=== PATIENT | female | born 1995 ===

== ENCOUNTER 2020-08-19 16:07 | Outpatient (CLI) | payer OTHER ==
[2020-08-19 16:52] VITALS: BP 117/66
[2020-08-19] MEDS ORDERED: LACTATED RINGERS 1,000 ML IV SCH ×2 (17:00→19:00)
[2020-08-19 18:40] LABS: Bilirubin,Urine NEG (Negative); Blood,Urine NEG (Negative); Color,Urine Colorless (Yellow); Protein,Urine <15 mg/dL mg/dL (Negative); RBC,Urine < 1.0 /HPF (0.0-6.0); Urobilinogen,Urine < 2.0 mg/dL (<2.0)
[2020-08-19] MEDS ORDERED: TERBUTALINE 1 MG/1 ML INJ SUB-Q SCH (19:00)
== END 2020-08-19 20:28 | disposition home or self-care (01) ==
LOC: TRG 16:07 → APU 16:10 → TRG 20:28
PROVIDERS: ATTEND Obstetrics & Gynecology
DX: O47.03 False labor before 37 completed weeks of gestation, third trimester (principal); Z3A.29 29 weeks gestation of pregnancy
CPT/HCPCS: 36415; 59025; 81001; 82731; 96360; 96361; 96372; J3105; J7120

== ENCOUNTER 2020-10-19 03:38 | Inpatient (IN) | payer OTHER ==
[2020-10-19] MEDS ORDERED: fentaNYL 100 MCG/2 ML INJ IV PRN (06:17)
[2020-10-19] MEDS ORDERED: MINERAL OIL 30 ML ORAL LIQD PO PRN (06:17)
[2020-10-19] MEDS ORDERED: TERBUTALINE 1 MG/1 ML INJ SUB-Q PRN (06:17)
[2020-10-19] MEDS ORDERED: LIDOCAINE (2%) 20 MG/1 ML VIAL 20 ML MDV INFILTRATI ONE ×2 (06:17→22:30)
[2020-10-19] MEDS ORDERED: LACTATED RINGERS 1,000 ML IV SCH (06:30)
[2020-10-19] MEDS ORDERED: OXYTOCIN DRIP 30 UNITS/500 ML BAG IV SCH ×2 (07:00)
[2020-10-19 07:53] LABS: Hematocrit 34.2 % (30.3-42.9); Hemoglobin 11.5 gm/dl (10.1-14.3); Mean Corpuscular HGB Conc 34 % (30-34); Mean Corpuscular Volume 85 fl (79-97); Platelet Count 257 K/mm3 (140-440); Red Blood Count 4.03 M/mm3 (3.65-5.03); Red Cell Distribution Width 12.9 % (13.2-15.2)
--- NOTE | 2020-10-19 09:25 | History and Physical Report ---
History of Present Illness Date of examination: 10/19/20 Date of admission: 10/19/20 06:18 Chief complaint: Contractions History of present illness: 25 year old presents to L&D with complaint of contractions. Patient denies LOF or VB. Patient received care at [facility]. records are available. LMP 01/20/2020. EDC 10/26/2020. significant for the following: + FFN and contractions earlier in . labs are as follows: B+, antibody screen negative, rubella immune, hepatitis B surface antigen negative, HIV negative, RPR nonreactive, gonorrhea negative, chlamydia negative, AFP negative, GBS negative, 1 hour sugar test 58. 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 denies: smoking, alcohol abuse, prescription drug abuse, IV drug use - Obstetrical History Expected Date of Delivery: 10/26/20 Actual Gestation: 39 Week(s) 0 Day(s) : 3 Para: 1 Hx # Term Pregnancies: 1 Number of Pregnancies: 0 Spontaneous Abortions: 1 Induced : 0 Number of Living Children: 1 Medications and Allergies Allergies Allergy/AdvReac Type Severity Reaction Status Date / Time No Known Allergies Allergy Verified 08/19/20 16:53 Active Meds: Active Medications Ephedrine Sulfate (Ephedrine Sulfate 50 Mg/1 Ml Inj) 10 mg IV Q2M PRN PRN Reason: Hypotension Fentanyl (Fentanyl 100 Mcg/2 Ml Inj) 100 mcg IV Q2H PRN PRN Reason: Pain,Severe (7-10) LABOR PAIN Oxytocin/Sodium Chloride (Pitocin/Ns 30 Unit/500ml) 30 units in 500 mls @ 2 mls/hr IV TITR TERRIE; Protocol Lactated Ringer's (Lactated Ringers) 1,000 mls @ 125 mls/hr IV DIRECT TERRIE Last Admin: 10/19/20 08:24 Dose: 125 mls/hr Documented by: Oxytocin/Sodium Chloride (Pitocin/Ns 30 Unit/500ml) 30 units in 500 mls @ 40 mls/hr IV TITR TERRIE; Protocol Mineral Oil (Mineral Oil 30 Ml Oral Liqd) 30 ml PO QHS PRN PRN Reason: Constipation Terbutaline Sulfate (Terbutaline 1 Mg/1 Ml Inj) 0.25 mg SUB-Q ONCE PRN PRN Reason: Hyperstimulation/Hypertonicity Review of Systems All systems: negative (contractions) - Vital Signs Vital signs: Vital Signs Temp Pulse Resp BP 99.3 F 88 16 113/69 10/19/20 04:09 10/19/20 04:09 10/19/20 04:09 10/19/20 04:09 Temp Pulse Resp BP Pulse Ox 97.5 F L 80 18 101/56 10/19/20 07:05 10/19/20 07:05 10/19/20 07:05 10/19/20 07:05 - Physical Exam Abdomen: Positive: normal appearance, soft. Negative: distention, tenderness, guarding, rigidity Genitourinary (Female): Positive: normal external genitalia, normal perenium. Negative: perineal/vulvar lesions (no lesions noted on careful exam with bright light) Vagina: Positive: normal moisture Uterus: Positive: enlarged. Negative: tender Anus/Rectum: Positive: normal perianal skin Extremities: Positive: normal. Negative: tenderness, edema - Obstetrical FHR: category 2 Uterine Contraction Monitor Mode: External Cervical Dilatation: 3 Cervical Effacement Percentage: 70 station: -3 Uterine Contraction Pattern: Regular Uterine Contraction Intensity: Mild Results Result Diagrams: 10/19/20 06:18 Abnormal lab results 10/19/20 Range/Units 06:18 RDW 12.9 L (13.2-15.2) % All other labs normal. Assessment and Plan A: at 39 weeks gestation. Labor. GBS negative. Category 2 FHR tracing. P: Admit. Continuous EFM. Lateral positioning. Anticipate vaginal .
[2020-10-19] MEDS ORDERED: ONDANSETRON 4 MG/2 ML INJ IV PRN (12:13)
[2020-10-19] MEDS ORDERED: NALOXONE 2 MG/2 ML INJ IV PRN (12:13)
[2020-10-19] MEDS ORDERED: diphenhydrAMINE 50 MG/ML VIAL IV PRN (12:13)
[2020-10-19] MEDS ORDERED: NalbUPHINE 10 MG/1 ML INJ IV PRN (12:13)
--- NOTE | 2020-10-19 12:49 | Anesthesia Consultation ---
Anesthesia Consult and Med Hx Date of service: 10/19/20 - Airway Anesthetic Teeth Evaluation: Good ROM Head & Neck: Adequate Mental/Hyoid Distance: Adequate Mallampati Class: Class I Intubation Access Assessment: Good - Pulmonary Exam CTA: Yes - Cardiac Exam Cardiac Exam: RRR - Pre-Operative Health Status ASA Pre-Surgery Classification: ASA2 Proposed Anesthetic Plan: Epidural - Pulmonary Hx Smoking: No Hx Asthma: No COPD: No Hx Pneumonia: No Hx Sleep Apnea: No - Cardiovascular System Hx Hypertension: No Hx Heart Attack/AMI: No Hx Angina: No - Central Nervous System Hx Seizures: No Hx Psychiatric Problems: No - Gastrointestinal Hx Gastroesophageal Reflux Disease: No - Endocrine Hx Renal Disease: No Hx End Stage Renal Disease: No Hx Liver Disease: No Hx Insulin Dependent Diabetes: No Hx Non-Insulin Dependent Diabetes: No Hx Hypothyroidism: No Hx Hyperthyroidism: No - Hematic Hx Anemia: No Hx Sickle Cell Disease: No - Other Systems Hx Alcohol Use: No
--- NOTE | 2020-10-19 12:50 | Progress Note ---
Labor Epidural - Labor Epidural Start Time: 12:32 Stop Time: 12:40 Performed by:: LESLYE BURGER Procedure: Patient is requesting epidural for labor and pain. H&P, labs were reviewed. Patient IDed, H&P reviewed, all questions and concerns were answered, and consent was signed. Timeout was performed at bedside. Patient in sitting position. Sterile prep and drape was performed. 3ml of 1% lidocaine skin wheal at L[3]- L [4]. 18-gauge Tuohy epidural needle was advanced to loss of resistance with air technique 4.5cm. Negative CSF negative blood. Epidural catheter advanced to [10] centimeters. [negative] Aspiration [negative] test dose. Sterile dressing applied. Patient tolerated procedure.
[2020-10-19] MEDS: ePHEDrine SULFATE 50 MG/1 ML INJ IV PRN ×2 (12:58→13:19)
[2020-10-19] MEDS ORDERED: fentaNYL-BUPIV 2 MCG/ML-0.125% 200 MCG/100 ML BAG EPIDURAL SCH (13:00)
[2020-10-19] MEDS ORDERED: LANOLIN/ZINC/DIMETHICONE (LANSINOH) 7 GM TP PRN (22:49)
[2020-10-19] MEDS ORDERED: WITCH HAZEL/ GLYCERIN PAD TP PRN (22:49)
[2020-10-19] MEDS ORDERED: MAGNESIUM HYDROXIDE (MOM) ORAL LIQD UDC PO PRN (22:49)
[2020-10-19] MEDS ORDERED: HYDROcodone/ACETAMINOPHEN 5-325 MG TAB PO PRN (22:49)
--- NOTE | 2020-10-19 23:08 | Procedure Note ---
OB Delivery Note - Delivery Date of Delivery: 10/19/20 Surgeon: JADEN ARCHER Estimated blood loss: 300cc - Vaginal Delivery position: OA Intrapartum events: mult.variable deceleratio Delivery induction: none Delivery augmentation: pitocin Delivery monitor: external FHT, external uterine, internal FHT Route of delivery: vacuum extraction Indicators for instrumentation: nonreassuring FHR tracing Delivery placenta: spontaneous Delivery cord: 3 umbilical vessels Episiotomy: midline Delivery laceration: 2nd degree, other (right labial) Delivery repair: vicryl Delivery comments: Patient pushed to deliver a viable male over an intact perineum via vacuum- assisted vaginal delivery. Vacuum applied second to repetitive variable decelerations with poor maternal pushing effort. Vacuum applied x3 with no excess traction to a maximum force of 550 mmHg. Position DEEPA, no nuchal cord. Spontaneous cry at delivery. Delivery of the anterior shoulder atraumatic, remainder of delivery uncomplicated. Cord clamped cut and baby handed to waiting KIM team. Spontaneous delivery of an intact placenta with three-vessel cord second to excessive vaginal bleeding. Second-degree perineal laceration and right labial laceration repaired with 2-0 Vicryl in the usual fashion. The rectum and urethra were confirmed patent at the completion of the procedure. Firm fundus at the completion of the procedure. EBL 250 mL.All sponge needle and instrument counts correct x2. Mom and baby stable to . Carlos Archer MD - A at 1 minute: 8 at 5 minutes: 9 Infant Gender: Male (weight 3156gms)
[2020-10-20] MEDS: IBUPROFEN 600 MG TAB PO SCH ×5 (00:31→23:41)
[2020-10-20] MEDS: DOCUSATE SODIUM 100 MG CAP PO SCH ×2 (10:31→23:40)
[2020-10-20 11:31] LABS: Hemoglobin 9.5 gm/dl (10.1-14.3)
[2020-10-20] MEDS: FERROUS SULFATE 325 MG TAB PO SCH ×2 (12:12→23:40)
--- NOTE | 2020-10-20 12:28 | Progress Note ---
Assessment and Plan A: PP Day #1 Asymptomatic Anemia +Covid (Asymptomatic) P: Follow Routine Orders Continue PO FeSO4 Standard Covid Precautions D/C home in the AM RTO in 6 Weeks Subjective - Subjective Date of service: 10/20/20 Patient reports: appetite normal, voiding normally, pain well controlled, flatus, ambulating normally [place]: doing well, bottle feeding Objective - Vital Signs Latest vital signs: Vital Signs Temp Pulse Resp BP BP BP Pulse Ox 10/20/20 08:22 98.1 F 83 18 120/78 99 10/20/20 04:45 98.2 F 103 H 20 96/66 97 10/20/20 00:25 98.8 F 104 H 18 106/64 97 10/19/20 23:50 118 H 107/59 10/19/20 23:45 96 H 99 10/19/20 23:40 110 H 99 10/19/20 23:35 119 H 113/59 100 10/19/20 23:30 116 H 100 10/19/20 23:25 122 H 100 10/19/20 23:20 112 H 108/58 100 10/19/20 23:15 98.6 F 117 H 18 100 10/19/20 23:10 121 H 100 10/19/20 23:05 123 H 115/63 100 10/19/20 23:00 124 H 100 10/19/20 22:55 129 H 100 10/19/20 22:50 131 H 100 10/19/20 22:45 131 H 100 10/19/20 22:42 133 H 108/53 10/19/20 22:40 138 H 99 10/19/20 22:35 131 H 18 100 10/19/20 22:30 138 H 99 10/19/20 22:25 129 H 130/71 100 10/19/20 22:20 93 H 98 10/19/20 22:15 136 H 98 10/19/20 22:12 108 H 93 10/19/20 22:10 112 H 100 10/19/20 22:05 113 H 100 10/19/20 22:00 104 H 100 10/19/20 21:55 105 H 128/75 10/19/20 21:53 107 H 100 10/19/20 21:48 121 H 100 10/19/20 21:43 91 H 77 L 10/19/20 21:38 112 H 98 10/19/20 21:35 124 H 79 L 10/19/20 21:33 120 H 100 10/19/20 21:28 117 H 100 10/19/20 21:25 120 H 110/55 10/19/20 21:23 114 H 100 10/19/20 21:18 121 H 99 10/19/20 21:13 131 H 100 10/19/20 21:08 125 H 100 10/19/20 21:03 106 H 100 10/19/20 20:58 130 H 100 10/19/20 20:33 105 H 100 10/19/20 20:28 98 H 100 10/19/20 20:27 114 H 126/63 91 10/19/20 20:23 102 H 100 10/19/20 20:18 118 H 100 10/19/20 20:13 109 H 100 10/19/20 20:08 94 H 100 10/19/20 20:03 100 H 100 10/19/20 19:58 99 H 100 10/19/20 19:56 97 H 120/65 10/19/20 19:53 93 H 100 10/19/20 19:48 112 H 100 10/19/20 19:43 101 H 99 10/19/20 19:38 84 100 10/19/20 19:33 90 100 10/19/20 19:28 92 H 99 10/19/20 19:25 85 111/62 10/19/20 19:23 97 H 99 10/19/20 19:18 110 H 100 10/19/20 19:13 99 H 100 10/19/20 19:08 110 H 100 10/19/20 19:03 95 H 100 10/19/20 18:58 104 H 100 10/19/20 18:56 101 H 109/66 10/19/20 18:53 99 H 100 10/19/20 18:48 107 H 100 10/19/20 18:43 110 H 100 10/19/20 18:42 97.9 F 103 H 18 106/66 106/66 99 10/19/20 18:38 90 100 10/19/20 18:33 98 H 100 10/19/20 18:28 83 100 10/19/20 18:23 103 H 100 10/19/20 18:18 93 H 100 10/19/20 18:13 95 H 100 10/19/20 18:08 90 100 10/19/20 18:03 91 H 100 10/19/20 17:58 88 100 10/19/20 17:57 89 109/72 88 10/19/20 17:53 84 100 10/19/20 17:48 88 100 10/19/20 17:43 86 100 10/19/20 17:38 94 H 100 10/19/20 17:33 82 100 10/19/20 17:28 82 100 10/19/20 17:26 88 106/50 10/19/20 17:23 76 100 10/19/20 17:18 104 H 100 10/19/20 17:13 76 100 10/19/20 17:08 82 100 10/19/20 17:03 77 100 10/19/20 16:58 95 H 100 10/19/20 16:56 90 117/66 10/19/20 16:53 89 100 10/19/20 16:48 89 100 10/19/20 16:43 89 100 10/19/20 16:38 80 99 10/19/20 16:33 75 98 10/19/20 16:28 79 93/54 100 10/19/20 16:23 83 100 10/19/20 16:18 91 H 99 10/19/20 16:13 86 100 10/19/20 16:08 85 100 10/19/20 16:03 83 100 10/19/20 15:58 85 100 10/19/20 15:56 90 96/55 10/19/20 15:53 88 100 10/19/20 15:48 79 100 10/19/20 15:43 83 100 10/19/20 15:38 82 100 10/19/20 15:33 91 H 100 10/19/20 15:28 88 100 10/19/20 15:27 82 114/58 10/19/20 15:23 102 H 99 10/19/20 15:18 83 100 10/19/20 15:13 101 H 100 10/19/20 15:08 80 100 10/19/20 15:03 81 100 10/19/20 14:58 83 100 10/19/20 14:57 72 107/57 10/19/20 14:53 84 100 10/19/20 14:48 88 100 10/19/20 14:27 97.3 F L 85 18 111/71 111/71 10/19/20 13:55 102 H 91/53 10/19/20 13:46 85 111/55 10/19/20 13:25 79 105/59 10/19/20 13:23 80 101/52 10/19/20 13:21 88 98/54 10/19/20 13:19 74 98/53 10/19/20 13:17 96 H 101/54 10/19/20 13:13 73 109/74 10/19/20 13:11 89 101/75 10/19/20 13:09 98 H 93/54 10/19/20 13:07 96 H 104/59 10/19/20 13:05 83 129/84 10/19/20 13:03 96 H 99/53 10/19/20 13:01 76 101/62 10/19/20 12:59 80 99/57 10/19/20 12:57 93 H 95/54 10/19/20 12:55 121/55 10/19/20 12:53 88 107/56 10/19/20 12:51 92 H 116/59 10/19/20 12:49 81 118/57 10/19/20 12:47 88 115/66 10/19/20 12:43 99 H 126/60 10/19/20 12:41 97 H 137/65 10/19/20 12:39 106 H 153/83 10/19/20 12:37 108 H 132/72 10/19/20 12:35 113 H 122/68 10/19/20 12:33 107 H 122/68 10/19/20 12:31 105 H 115/65 10/19/20 12:29 85 116/60 10/19/20 12:27 96 H 112/55 Intake and Output 10/19/20 10/20/20 10/20/20 22:59 06:59 14:59 Intake Total 15.2 Output Total 950 400 400 Balance -934.8 -400 -400 Intake: IV 15.2 PITOCin/NS 30 UNIT/500ML 15.2 30 units In 500 ml @ 2 mls/hr IV TITR TERRIE Rx#: [id number] Output: Urine 950 400 400 Indwelling Catheter 950 Void 400 400 Other: Total, Output Amount 250 400 400 # Voids Void 1 Estimated Blood Loss 250 - Exam Breasts: Present: normal Cardiovascular: Present: Regular rate Lungs: Present: Clear to auscultation, Normal air movement Abdomen: Present: normal appearance, soft, normal bowel sounds Uterus: Present: normal, firm, fundal height below umbilicus Extremities: Present: normal - Labs Labs: Abnormal lab results 10/19/20 10/20/20 Range/Units 08:30 11:04 Hgb 9.5 L (10.1-14.3) gm/dl Hct 30.0 L (30.3-42.9) % Coronavirus (PCR) Positive A (Negative)
--- NOTE | 2020-10-20 12:30 | Discharge Summary ---
Providers - Providers Date of Admission: 10/19/20 06:18 Date of discharge: 10/21/20 Attending physician: JADEN ARCHER MD Primary care physician: JADEN ARCHER MD Hospitalization Reason for admission: active labor Delivery: vacuum extraction Episiotomy: none Laceration: 2nd degree Other procedures: none complications: none Discharge diagnosis: IUP at term delivered baby: male Condition at discharge: Good Disposition: DC-01 TO HOME OR SELFCARE Plan - Provider Discharge Summary Activity: routine, no sex for 6 weeks, no heavy lifting 4 weeks, no strenuous exercise Diet: routine Instructions: routine Additional instructions: [] Smoking cessation referral if applicable(refer to patient education folder for contact #) [] Refer to [facility] Call your doctor immediately for: * Fever > 100.5 * Heavy vaginal bleeding ( >1 pad per hour) * Severe persistent headache * Shortness of breath * Reddened, hot, painful area to leg or breast * Drainage or odor from incision. * Keep incision clean and dry at all times and follow doctor's instructions regarding bathing/showering - Follow up plan Follow up: JADEN ARCHER MD [Primary Care Provider] - 6 Weeks
[2020-10-21] MEDS: IBUPROFEN 600 MG TAB PO SCH ×2 (05:18→13:02)
--- NOTE | 2020-10-21 05:58 | Post Anesthesia Evaluation ---
- Post Anesthesia Evaluation Patient Participated: Yes Airway Patent: Yes Stable Respiratory Function: Yes Nausea/Vomiting: No Temp > 96.8F: Yes Pain Manageable: Yes Adequeate Hydration: Yes Anesthesia Complications: No Block Receding Appropriately: Yes Patient on Ventilator: No
[2020-10-21] MEDS: DOCUSATE SODIUM 100 MG CAP PO SCH (10:35)
[2020-10-21] MEDS: FERROUS SULFATE 325 MG TAB PO SCH (10:36)
[2020-10-21 15:39] VITALS: BP 107/69
== END 2020-10-21 15:30 | disposition home or self-care (01) | DRG 807 ==
LOC: TRG 03:38 → APU 03:40 → LD 06:18 → TRG 06:18 → OB 10-20 00:06
PROVIDERS: ADMIT Obstetrics & Gynecology; ATTEND Obstetrics & Gynecology
PROC: 10D07Z6 Extraction of Products of Conception, Vacuum, Via Natural or Artificial Opening (ICD-10-PCS; principal; 2020-10-19)
PROC: 0KQM0ZZ Repair Perineum Muscle, Open Approach (ICD-10-PCS; 2020-10-19)
PROC: 3E0R3BZ Introduction of Anesthetic Agent into Spinal Canal, Percutaneous Approach (ICD-10-PCS; 2020-10-19)
PROC: 00HU33Z Insertion of Infusion Device into Spinal Canal, Percutaneous Approach (ICD-10-PCS; 2020-10-19)
DX: O76 Abnormality in fetal heart rate and rhythm complicating labor and delivery (principal); Z37.0 Single live birth; O66.5 Attempted application of vacuum extractor and forceps; Z3A.39 39 weeks gestation of pregnancy; O70.1 Second degree perineal laceration during delivery; O99.02 Anemia complicating childbirth; D64.9 Anemia, unspecified; Z20.822 Contact with and (suspected) exposure to COVID-19
CPT/HCPCS: 36415; 59025; 85014; 85018; 85027; 86592; 86850; 86900; 86901; 96360; 96361; 96365; 96366; 96372; 96374; G0378; J2590; J3010; J7120; U0003